=== PATIENT | male | born 1975 | race Caucasian/White ===

== ENCOUNTER 2016-09-12 21:47 | Inpatient (IN) | payer OTHER ==
--- NOTE | ~2016-09-12 | HP ---
Unit #: [id number] #: [id number] Patient: CUONG REDD [id number] [place] [address] [id number] MR#: [id number] NAME: CUONG REDD ROOM: P208 Age: 41 Sex: M Admission Date: 09/12/2016 : 1975 Attending Physician: Windy Sol M.D. Admitting Physician: Windy Sol M.D. Primary Care Physician: Generic Doctor Not In System HISTORY AND PHYSICAL HISTORY OF PRESENT ILLNESS Cuong is a 41 year old admitted to [address] [place] [address] because of his drug use. He snorts heroin. This is his first admission to [facility]. PAST MEDICAL HISTORY 1. Long history of opioid abuse to include snorting heroin. 2. 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 He has been noncompliant with diabetic meds for years. 3. Hypothyroidism. PAST SURGICAL HISTORY Nothing reported. ALLERGIES Penicillin SOCIAL HISTORY He does not smoke or drink alcohol. Admits to a long history of opioid abuse to include snorting heroin. FAMILY HISTORY Medically noncontributory. REVIEW OF SYSTEMS CONSTITUTIONAL: No fever or chills. HEENT: Denies any sore throat, ear pain or runny nose. CARDIOVASCULAR: Denies chest pain, irregular heart rhythm or palpitations. CHEST: Denies shortness of breath or cough. No hemoptysis. GASTROINTESTINAL: Denies nausea, vomiting, diarrhea or chronic constipation. ENDOCRINE: Denies history of increased thirst or urination. No recent significant weight loss or gain. GENITOURINARY: Denies dysuria, frequency, or hematuria. SKIN: Denies any rashes. HEMATOLOGIC: Denies history of increased bleeding or bruising. MUSCULOSKELETAL: Denies any hot, swollen joints. No generalized muscle pain. NEUROLOGIC: Denies problems with vision or speech. No frequent, severe headaches. No numbness, tingling or weakness in any extremities. Denies loss of bladder or bowel control. Unit #: [id number] #: [id number] Patient: CUONG REDD CURRENT MEDICATIONS 1. Detox protocol 2. Synthroid 0.1 mg q day 3. Nicotine patch 14 mg q day 4. Humulin 70/30 30 units b.i.d. PHYSICAL EXAMINATION GENERAL: Alert, well-nourished, in no apparent distress. VITAL SIGNS: Blood pressure 100/64, heart rate 80, respirations 16, temperature 98.6. WEIGHT: 192 pounds. HEIGHT: 5'8". SKIN: Warm and dry without rash or lesion. HEENT: Normocephalic. TMs not viewed. Oral and nasal passages clear. Conjunctivae clear. Pupils equal, round and reactive to light and accommodation. Extraocular movements intact. NECK: Supple without lymphadenopathy or thyromegaly. HEART: Regular rate and rhythm without murmur. LUNGS: Clear. ABDOMEN: Soft, nontender. : Not done. EXTREMITIES: No evidence of cyanosis, clubbing or edema. Moves all extremities without focal deficit. NEUROLOGICAL: Grossly within normal limits. Cranial Nerves: II: Visual clark are intact. III, IV AND : Extraocular movements are intact. Pupils are equal, round and reactive to light. V: Facial sensation is grossly normal. VII: Facial movements and expression are normal. VIII: Auditory acuity grossly intact. IX, X: Uvula is midline. Phonation is normal. XI: Patient shrugs shoulders and turns head normally. XII: Tongue protrudes in the midline. Sensory and Motor Function: Sensory and motor sensation is grossly normal. Motor: moves all extremities well. Coordination: Gait is normal. Deep Tendon Reflexes: Intact. IMPRESSION Psychiatric admission RECOMMENDATIONS PSYCHIATRIC: Per psychiatrist. MEDICAL: 1. I see no contraindications to participating in facility's activities. 2. D/C 70/30 insulin. Start Levemir 20 units sub q q.h.s., Humalog sliding scale. Monitor Accu-Cheks a.c. and h.s. Constant carb diet. 3. Check a TSH, continue Synthroid 0.1 mg q day. MEDICAL PROGNOSIS Good. MEDICAL CONDITION Stable. Dictated by... Jyoti Moss P.A.-C. for Unit #: [id number] #: [id number] Patient: CUONG REDD Marimar Jordan TD: 09/13/2016 23:10 JOB #: [id number] HISTORY AND PHYSICAL Page 1 of 1 X Jyoti Moss HISTORY AND PHYSICAL
--- NOTE | ~2016-09-12 | CO ---
Unit #: [id number] #: [id number] Patient: CUONG REDD [id number] [place] [address] [id number] MR#: [id number] NAME: CUONG REDD ROOM: P208 Age: 41 Sex: M Admission Date: 09/12/2016 : 1975 Attending Physician: Windy Sol M.D. Consultation Date: 09/13/2016 CONSULTATION REPORT SUBJECTIVE Cuong is a 41-year-old with history of juvenile diabetes and hypothyroidism. He has been noncompliant with both medications for many months if not years. We have been asked to assess and treat. His last insulin that he used was Humulin 70/30. PLAN 1. Plan will be to discontinue the 70/30 insulin and start Levemir 20 units subcu q.h.s. Also initiate a routine Humalog sliding scale. Monitor Accu-Cheks a.c. and h.s. and provide constant carb diet. 2. We will also check TSH and continue his Synthroid dose of 0.1 mg daily. Dictated by... Jyoti Moss P.A.-C. for Marimar Jordan/yil TD: 09/13/2016 23:05 JOB #: [id number] CONSULTATION REPORT Page 1 of 1 X Jyoti Moss CONSULTATION REPORT
--- NOTE | ~2016-09-12 | DS ---
Unit #: [id number] #: [id number] Patient: KEVIN REDD [id number] [place] [id number] I MR#: [id number] NAME: KEVIN REDD ROOM: P208 Age: 41 Sex: M Admission Date: 09/12/2016 : 1975 Discharge Date: 09/16/2016 Attending Physician: Windy Sol M.D. Primary Care Physician: Generic Doctor Not In System DISCHARGE SUMMARY IDENTIFYING DATA Mr. Hutchins is a 41-year-old white male, who was self-referred to the hospital. DISCHARGE DIAGNOSES Psychiatric: Opioid dependence, moderate and acute withdrawals; opioid-induced mood disorder. Medical: Hypothyroidism. Stressors: Moderate psychosocial stressors. HISTORY OF PRESENT ILLNESS Please see initial psychiatric evaluation for details. PAST PSYCHIATRIC HISTORY Please see initial psychiatric evaluation for details. PAST MEDICAL HISTORY Please see initial psychiatric evaluation for details. HOSPITAL COURSE The patient was admitted to the adult chemical dependency unit at [facility] and was oriented to the hospital environment. Routine p.r.n. medications were initiated and started back on his home medications and detox protocol was initiated as well. He was taking medications regularly and was tolerating them fairly well and was able to show a decent therapeutic response and as such, it was decided that he will be discharged home and will continue treatment on an outpatient basis. DISCHARGE MEDICATIONS Synthroid 0.1 mg a day for hypothyroidism and Levemir 20 units at bedtime for diabetes. DISCHARGE CONDITION Stable. PROGNOSIS Fair. Dictated by... Windy Sol M.D. IAA/modl Unit #: [id number] #: [id number] Patient: KEVIN REDD TD: 09/16/2016 06:59 JOB #: [id number] DISCHARGE SUMMARY Page 1 of 1 X Windy Sol MD X DISCHARGE SUMMARY
--- NOTE | ~2016-09-12 | PA ---
Unit #: [id number] #: [id number] Patient: KEVIN REDD [id number] [facility] [address] [place] [address] [id number] MR#: [id number] NAME: KEVIN REDD ROOM: P208 Age: 41 Sex: M Admission Date: 09/12/2016 : 1975 Date of Assessment: Attending Physician: Windy Sol M.D. Admitting Physician: Windy Sol M.D. Primary Care Physician: Generic Doctor Not In System PSYCHIATRIC ASSESSMENT DATE OF SERVICE 09/13/2016. IDENTIFYING DATA Mr. Amaral is a 41-year-old single white male, who is a resident of [place], [place], and was referred to us from the [place] office on a voluntary basis. CHIEF COMPLAINT "I desperately want to stop using drugs and get back on track." HISTORY OF PRESENT ILLNESS Mr. Pickard is a 41-year-old white male with history of substance abuse and dependence, who was self-referred to the hospital, reports that his mother last year and he states that he does not think that he has processed her very well and stated that he wanted desperately to stop using drugs and get back on track and that he has an extensive history of substance abuse including pain pills, but went to treatment in order to save custody of his son and he was sober for 5 years. He then allowed himself to be convinced to try heroin from another co-worker 6 months ago and the patient stated that he became hooked up and he is having trouble stopping and was very emotional throughout initial evaluation, stating that he has been having extreme desire to get clean and live a normal life for himself and his son. The patient was seen to be anxious, withdrawn, and does report depression, anxiety, irritability, restlessness, psychomotor retardation, feelings of hopelessness and helplessness, but denies any active suicidal ideations, intent, or plan. SUBSTANCE ABUSE HISTORY The patient reports history of opioid dependence and has been using a gram of heroin on daily basis. PAST PSYCHIATRIC HISTORY The patient has had history of chemical dependency treatment at [facility], as well as at the [facility] in [place], [place], and review of the medical records indicate that currently he is not active in treatment program, is not seeing a psychiatrist, not taking any psychotropic medications. PAST MEDICAL HISTORY The patient's medical history is significant for diabetes mellitus, hypothyroidism. Unit #: [id number] #: [id number] Patient: KEVIN REDD. PERSONAL AND SOCIAL HISTORY A 41-year-old white male, who reports that he is single, unemployed, and lives with his roommate and has poor social support system. MENTAL STATUS EXAMINATION Young white male who was casually dressed with fair personal hygiene, appears to be in no acute distress or discomfort. He was awake and alert on interaction with intact orientation to time, place, and person. His mood was anxious and depressed with a congruent affect. His speech was slow and restricted in content. His thought processes were disorganized with some looseness of associations. He denies any suicidal or homicidal ideations, and also denies any auditory or visual hallucinations. His insight and judgment remain significantly impaired. DIAGNOSTIC IMPRESSION Psychiatric: Major depressive disorder, recurrent, moderate, without psychotic features; opioid dependence, moderate and acute withdrawals. Medical: Diabetes mellitus, hypothyroidism. Stressors: Moderate psychosocial stressors. TREATMENT PLAN 1. The patient has presented with history of mood disorder and substance abuse and dependence and has been decompensating and will need inpatient hospitalization for detoxification, safety, and stabilization. We will start him on detox protocol. We will closely monitor for any worsening withdrawal symptoms. 2. Supportive therapy was provided to the patient. 3. Safe, structured, and nourishing environment will be provided. ESTIMATED LENGTH OF STAY 4 to 5 days. ABILITY TO HELP SELF Limited. WILLINGNESS TO HELP SELF The patient appears to be willing to help self. STRENGTHS 1. Communicative. 2. Cooperative. PROBLEMS 1. Chronic dysphoric symptoms. 2. Chronic chemical dependency. 3. Poor social support system. DISCHARGE CRITERIA This will be contingent upon the patient's ability to go through detox without any having any significant withdrawal symptoms as well as his ability to stay safe to himself, particularly after discharge from the hospital. Dictated by... Unit #: [id number] #: [id number] Patient: KEVIN REDD Marimar Smith/chapin TD: 09/13/2016 07:29 JOB #: [id number] PSYCHIATRIC ASSESSMENT Page 1 of 1 X Windy Sol MD PSYCHIATRIC ASSESSMENT
--- NOTE | ~2016-09-12 | PN ---
Unit #: [id number] #: [id number] Patient: KEVIN REDD [id number] [facility] [address] [place] [address] [id number] I MR#: [id number] NAME: KEVIN REDD ROOM: P208 Age: 41 Sex: M Admission Date: 09/12/2016 : 1975 Attending Physician: Windy Sol M.D. Admitting Physician: Windy Sol M.D. Primary Care Physician: Generic Doctor Not In System [facility] PROGRESS NOTES DATE OF SERVICE 09/15/2016 DISCUSSION Mr. Redd is a 41-year-old white male who was seen today. Chart was reviewed and case was discussed with staff. He has been anxious and withdrawn though has not shown any agitation or irritability and has been cooperative with the treatment recommendations and has been taking the medications and tolerating them fairly well with no reported side effects. MENTAL STATUS EXAMINATION Young white male who is casually dressed with fair personal hygiene, appears to be in no acute distress or discomfort. The patient was awake and alert on interaction. His mood is anxious with congruent affect. He denies any suicidal or homicidal ideations. His insight and judgment remain slightly impaired. TREATMENT PLAN 1. We will continue him on his current medications and treatment protocol. We will monitor his response to the medications and make further adjustments as needed. 2. We will continue to follow up. Dictated by... Windy Sol M.D. IAA/bzg TD: 09/16/2016 11:42 JOB #: [id number] [facility] PROGRESS NOTES Page 1 of 1 X Windy Sol MD PROGRESS NOTE
--- NOTE | ~2016-09-12 | PN ---
Unit #: [id number] #: [id number] Patient: KEVIN REDD [id number] [facility] [address] [place] [address] [id number] MR#: [id number] NAME: KEVIN REDD ROOM: P208 Age: 41 Sex: M Admission Date: 09/12/2016 : 1975 Attending Physician: Windy Sol M.D. Admitting Physician: Windy Sol M.D. Primary Care Physician: Generic Doctor Not In System [facility] PROGRESS NOTES DATE OF SERVICE: 09/14/2016 SUBJECTIVE Mr. Redd is a 41-year-old white male who was seen today and chart was reviewed, and case was discussed with the staff. He has been anxious, withdrawn, and seclusive to himself and appears to be in some distress or discomfort as he goes to detox. Meanwhile, he has been taking the medications and tolerating them fairly well with no reported side effects. MENTAL STATUS EXAMINATION Young white male who was casually dressed with fair personal hygiene, appears to be in no acute distress or discomfort. He was awake and alert on interaction with intact orientation. His mood was anxious with a congruent affect. He denies any suicidal or homicidal ideations. His insight and judgment remain slightly impaired. TREATMENT PLAN 1. We will continue him on his current medications and treatment protocol. We will monitor his response to medications and make further adjustments as needed. 2. We will continue to follow up. Dictated by... Marimar Smith/chapin TD: 09/14/2016 13:26 JOB #: [id number] [facility] PROGRESS NOTES Page 1 of 1 X Windy Sol MD PROGRESS NOTE
[2016-09-14 11:26] LABS: BASOPHIL% 0.4 % (0-2.5); EOSINOPHIL# 0.1 X10e3 (0-0.7); EOSINOPHIL% 1.2 % (0.0-7.0); HEMATOCRIT 43.3 % (38.0-50.0); HEMOGLOBIN 14.4 gm/dL (13.0-16.0); LYMPHOCYTE# 1.6 X10e3 (1.0-3.5); LYMPHOCYTE% 16.2 % (17.0-45.0); MEAN CELL VOLUME 90.8 FL (83-96); MEAN CORPUSCULAR HEMOGLOBIN 30.2 PG (28-34); MEAN CORPUSCULAR HGB CONC 33.3 g/dL (30-36); MEAN PLATELET VOLUME 8.7 FL (6.5-11.5); MONOCYTE# 0.5 X10e3 (0-1.0); MONOCYTE% 5.3 % (3.0-12.0); NEUTROPHIL# 7.5 X10e3 (1.5-7.1); NEUTROPHIL% 76.9 % (40-75); PLATELET COUNT 217 X10e3 (140-420); RED BLOOD COUNT 4.77 X10e (3.90-5.60); RED CELL DISTRIBUTION WIDTH 13.1 % (11.0-15.5); WHITE BLOOD COUNT 9.8 X10e3 (4.0-10.5)
[2016-09-14 11:29] LABS: DIFF IND NO
[2016-09-14 12:24] LABS: ALBUMIN SERUM 3.6 g/dL (3.5-5.0); ALKALINE PHOSPHATASE 113 U/L (32-92); ALT (SGPT) 58 U/L (10-40); AST (SGOT) 46 U/L (10-42); BILIRUBIN,TOTAL 0.7 mg/dL (0.2-2.0); BLOOD UREA NITROGEN 9 mg/dL (9-23); BUN/CREATININE RATIO 12.85; CALCIUM SERUM 8.7 mg/dL (8.4-10.2); CARBON DIOXIDE 27 mmol/L (22-31); CHLORIDE 106 mmol/L (100-111); CREATININE SERUM 0.7 mg/dL (0.6-1.4); DEPAKENE (VALPROIC ACID) <10 ug/mL (50-125); GLOM FILT RATE Estimated 118.9 mL/min (>60); GLUCOSE FASTING 160 mg/dL (70-110); POTASSIUM 3.9 mmol/L (3.5-5.1); PROTEIN TOTAL SERUM 6.1 g/dL (6.0-8.3); SODIUM 141 mmol/L (135-145); THYROID STIMULATING HORMONE 1.25 uIU/ml (0.34-5.60)
[2016-09-14 12:33] LABS: FREE THYROXIN (T4) 0.79 ng/dL (0.58-1.64)
[2016-09-14 12:58] LABS: URINE APPEARANCE CLEAR; URINE BILIRUBIN NEG (NEG); URINE BLOOD NEG (NEG); URINE COLOR YELLOW; URINE GLUCOSE 500 MG/DL (NEG); URINE KETONE NEG (NEG); URINE LEUKOCYTE ESTERASE NEG (NEG); URINE NITRATE NEG (NEG); URINE PROTEIN NEG (NEG); URINE SPECIFIC GRAVITY 1.029 (1.003-1.035)
[2016-09-14 13:14] LABS: AMPHETAMINE NEG (NEG); BARBITURATES NEG (NEG); BENZODIAZEPINES NEG (NEG); COCAINE POS (NEG); MARIJUANA NEG (NEG); OPIATES POS (NEG); TRICYCLIC ANTIDEPRESSANTS NEG (NEG); U METHADONE NEG (NEG)
== END 2016-09-16 09:22 | disposition home or self-care (01) | DRG 897 ==
LOC: P2S 21:47
PROVIDERS: Psychiatry & Neurology Psychiatry
PROC: HZ2ZZZZ Detoxification Services for Substance Abuse Treatment (ICD-10-PCS; principal; 2016-09-12)
DX: F11.23 Opioid dependence with withdrawal (principal); E11.8 Type 2 diabetes mellitus with unspecified complications; E03.9 Hypothyroidism, unspecified; Z88.0 Allergy status to penicillin; Z91.14 Patient's other noncompliance with medication regimen; Z79.4 Long term (current) use of insulin; F11.24 Opioid dependence with opioid-induced mood disorder
CPT/HCPCS: 80053; 80164; 80307; 81003; 82140; 82947; 84439; 84443; 85025